=== PATIENT | female | born 1965 | race Hispanic/Latino ===

== ENCOUNTER → 2016-08-31 | Day surgery (SDC) | payer OTHER ==
[~2016-08-31] VITALS: Ht 160 cm; Wt 97.5 kg
[~2016-08-31] MED LIST: CRESTOR10 M1 PO; DEPAKOTE ER250 M1 PO; EFFEXOR XR150 M1 PO; KLONOPIN0.5 M1 PO; PROAIR HFA8.5 GM INH; SEROQUEL; TRAMADOL HCL50 M1 PO; TRAZODONE HCL100 M1 PO
--- NOTE | 2016-08-31 17:29 | Operative Report ---
Operative/Inv Procedure Report Surgery Date: 08/31/16 Name of Procedure: Bilateral breast reduction free nipple technique Pre-Operative Diagnosis: Symptomatically macromastia Post-Operative Diagnosis: Symptomatic macromastia Estimated Blood Loss: scant (250) Surgeon/Oyster Cultivator: THEODORE BOOTH MD Anesthesia: general endotracheal tube Operative/Procedure Note Note: Patient was counseled extensively regards the procedure the alternatives risks and expected outcomes as relates to her request for surgical intervention to treat symptomatically macromastia. A SPS informed consent is Upper Sorbian and has returned sign. She had a few minor questions today which are answered. We used the [employer] service for her additional discussion today. States she would like to be a B cup and she was told no guarantees were given in regards to cup size and she will likely be larger. The loss of the graft infection bleeding pain numbness asymmetry nipples will not be sensate she cannot breast-feed should not have erectile function. In the standing position for an inferior pedicle Cohn pattern technique. She was brought to the operative placed supine on the table general anesthesia was established intravenous antibiotics were given after the application of Venodyne boots. Chest was prepped and draped in usual sterile fashion. Skin closure was marked out. Inverted V was de- epithelialized leaving a large amount of central tissue. Similarly an inferior pedicle was designed. 2-0 Vicryl closure was used as well as 3-0 Monocryl throughout. The patient was then put in the sitting position to charlie the orientation of the new nipple areola complexes. Any of the surgery the nipple areolar complexes were removed as grafts. They were defatted placed into an epidermal defect and sutured at the periphery including a tie-over bolster dressing.
== END ==
LOC: STS 02:19
DX: N62 Hypertrophy of breast (principal); R68.89 Other general symptoms and signs; E66.01 Morbid (severe) obesity due to excess calories; Z68.39 Body mass index [BMI] 39.0-39.9, adult; J45.909 Unspecified asthma, uncomplicated
CPT/HCPCS: 88305; J0131; J0690; J2250; J2405

== ENCOUNTER 2016-09-03 17:19 | Emergency (ER) | payer OTHER ==
[~2016-09-03] VITALS: Ht 160 cm; Wt 97.5 kg
[~2016-09-03 17:19] MED LIST changes: -TRAMADOL HCL50 M1 PO
[2016-09-03 17:33] VITALS: BP 121/83
--- NOTE | 2016-09-03 18:53 | ED GENERAL ADULT ---
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 Exam Limitations: language barrier Vital Signs & Intake/Output Vital Signs & Intake/Output Vital Signs Date Time Temp Pulse Resp B/P B/P Pulse O2 O2 Flow FiO2 Mean Ox Delivery Rate 09/03 1733 97.5 106 20 121/83 98 Room Air ED Intake and Output 09/04 0000 09/03 1200 Intake Total Output Total Balance Patient 215 lb Weight Weight Estimated Measurement Method Allergies Coded Allergies: aspirin (Intermediate, eye swelling 08/29/16) acetaminophen (From PERCOCET) (RASH 09/03/16) oxycodone (From PERCOCET) (RASH 09/03/16) Reconcile Medications Albuterol Sulfate (Proair Hfa) 90 MCG HFA.AER.AD 2 PUF INH Q4-6 PRN PRN ASTHMA (Reported) Clonazepam (Klonopin) 0.5 MG TABLET 1 TAB PO BIDP ANXIETY (Reported) Divalproex Sodium (Depakote ER) 250 MG TAB.ER.24H 3 TAB PO QPM MENTAL HEALTH (Reported) Rosuvastatin Calcium (Crestor) 10 MG TABLET 1 TAB PO DAILY CHOLESTEROL ( Reported) [SEROQUEL] MENTAL HEALTH (Reported) Tramadol HCl 50 MG TABLET 1 TAB PO BIDP PRN pain Trazodone HCl 100 MG TABLET 1 TAB PO QPM SLEEP (Reported) Venlafaxine HCl (Effexor XR) 150 MG CAP.ER.24H 1 CAP PO DAILY MEMTAL HEALTH ( Reported) Triage Note: PT TO ED C/O PAIN TO B/L BREASTS. PT HAD BREAST REDUCTION SURGERY ON 08/[address] BOOTH AT [facility]. PT STATES SHE BROKE OUT WITH A RASH FROM THE PERCOCET AND HAS BEEN UNABLE TO TAKE IT. Triage Nurses Notes Reviewed? yes Onset: Gradual Duration: day(s): (3), constant Timing: recent history Injury Environment: home Severity: moderate Severity Numbers: 7 No Modifying Factors: none Associated Symptoms: denies HPI: 51-year-old female with no other past medical history status post breast reduction surgery August [address] Burnett presents to ER for evaluation complaining of onset bilateral breast pain.The patient states she took her first Percocet last night however broke out in a rash to her face. She states since then she's had mild to moderate aching pain to both of her breasts. The visiting nurse came yesterday to change the dressings and was scheduled to come again tomorrow. She denies any fever chills shortness of breath pain with inspiration chest pain. No rashes to her skin the discharge has decreased in amount and frequency. No modifying factors or associated symptoms otherwise she is scheduled to see Dr. Burnett in 2 weeks. (JEANE DREW) Past History Travel History Traveled to [place] past 21 day No Medical History Any Pertinent Medical History? see below for history Cardiovascular: hypertension Respiratory: asthma Endocrine: BORDERLINE DM Surgical History Surgical History: non-contributory Psychosocial History What is your primary language Angolan Tobacco Use: Never used ETOH Use: denies use Illicit Drug Use: denies illicit drug use Family History Hx Contributory? No (JEANE DREW) Review of Systems Review of Systems Constitutional: Reports: see HPI. All Other Systems: Reviewed and Negative Comments Review of systems: See HPI, All other systems negative. Constitutional, no chills no fever, no malaise no weight loss HEENT: no sore throat no congestion, no ear pain Cardiovascular: No chest pain , no palpitation , no orthopnea Skin: no rashes, no change in skin Respiratory: No dyspnea no cough no sputum no hemoptysis GI: No nausea no vomiting, no diarrhea, no bloating/constipation : No dysuria No hematuria, no frequency, no discharge Muscle skeletal: No joint pain, no joint swelling, no back pain, no neck pain, Neurologic: No numbness no headache Psych: No stress no depression,. Heme/endocrine: No bruising no bleeding Immunology: No lymphadenopathy (JEANE DREW) Physical Exam Physical Exam General Appearance: well developed/nourished, no apparent distress, alert, awake Comments: Well-developed well-nourished patient in no apparent distress. HEENT: Atraumatic, extraocular motion intact Neck: Supple, FROM Back: FROM Cardiovascular: Regular rate and rhythms no murmurs rubs Chest: Healing ecchymosis incisions are clean dry and intact there is no discharge no fluctuance no overlying erythema or warmth no active discharge or bleeding Respiratory: Chest nontender.There were no bony deformities, no asymmetry. No respiratory distress. Patient speaking in full complete sentences. Breath sounds clear to auscultation bilaterally: NO W/R/R Extremities: full range of motion Neuro: awake, alert, and oriented to person, place and time. There were no obvious focal neurologic abnormalities. Skin: Warm & dry;No appreciable rash on exposed skin Psych: Mood affect normal, normal memory normal judgment. Core Measures ACS in differential dx? No CVA/TIA Diagnosis: No Severe Sepsis Present: No Septic Shock Present: No (JEANE DREW) Progress Differential Diagnoses I considered the following diagnoses in my evaluation of the patient: cellulitis , post op pain, abscess, dermatisi, allergic rxn, anaphylaxis Plan of Care: Current Medications Sig/Davina Start time Last Medication Dose Stop Time Status Admin Tramadol HCl 50 MG ONCE ONE 09/03 1914 UNVr (Ultram) 09/04 1915 Dressings were changed cleaned I discussed the patient and family plan of care need to follow-up with Dr. Burnett tomorrow no signs of overlying infection I discussed them we will send her home with tramadol, sterile dressings were applied they feel comfortable plan I answered all their questions (JEANE DREW) Initial ED EKG: none (JEANE DREW) Departure Departure Time of Disposition: 1905 Disposition: HOME OR SELF CARE Condition: Stable Clinical Impression Primary Impression: Breast pain Referrals: EMMY COOLEY,THEODORE VILLANUEVA MD,THAIS Sommer (PCP/Family) Additional Instructions: Follow-up with Dr. Burnett tomorrow. Tramadol for pain this may make you drowsy, return to the ER anytime sooner with any concerns. This was sent to [facility] Departure Forms: Customer Survey General Discharge Information Prescriptions: Current Visit Scripts Tramadol HCl 1 TAB PO BIDP PRN pain #15 TAB (JEANE DREW) PA/ACCOUNT RECEIVABLE ASSOCIATE Co-Sign Statement Statement: ED Attending supervision documentation- [] I saw and evaluated the patient. I have also reviewed all the pertinent lab results and diagnostic results. I agree with the findings and the plan of care as documented in the PA's/ACCOUNT RECEIVABLE ASSOCIATE's documentation. [x] I have reviewed the ED Record and agree with the PA's/ACCOUNT RECEIVABLE ASSOCIATE's documentation. [] Additions or exceptions (if any) to the PAs/ACCOUNT RECEIVABLE ASSOCIATE's note and plan are summarized below: [] (BARB COOLEY,ROHAN Fischer) Critical Care Note Critical Care Note Critical Care Time: non-applicable (JEANE DREW)
[2016-09-03] MEDS ORDERED: TRAMADOL HCL50 M1 PO (19:07)
== END 2016-09-03 19:10 ==
LOC: ERH 17:19
DX: N64.4 Mastodynia (principal)